=== PATIENT | male | born 1970 | race Caucasian/White ===

== ENCOUNTER 2024-10-10 06:14 | Emergency (ER) | payer MEDICAID, SELFPAY ==
[2024-10-10] VITALS (26 sets, daily range): BP systolic 86–212; BP diastolic 58–150; PULSE 76–106; RESP 15–23; TEMP 35.9–36.4; O2SAT 97–99; BMI 19.0
--- NOTE | 2024-10-10 06:35 | XR_ITS ---
Examination: CT abdomen with intravenous contrast CT pelvis with intravenous contrast 2-D coronal reconstructions 2-D sagittal reconstructions Date and time of exam:October 10, 2024 0858 hrs. Indications: Abdominal pain, marked hypertension today. CTDI: vol (mGy) 5.05 DLP: (mGycm) 271 Technique: Multiple axial sections of the abdomen and pelvis have been obtained. 64 slice high-resolution scanner used. 3 mm axial sections have been obtained, post intravenous injection 30 cc Isovue-300 2-D sagittal, coronal reconstructions obtained. Low dose protocols were performed. One or more of the following dose reduction techniques were used; automated exposure control, adjustment of the mA and/or KV according to patient size, use of iterative reconstruction technique. Findings: Partially ruptured infrarenal abdominal aortic aneurysm AP dimension of the infrarenal abdominal aorta is at least 5.9 cm, extensive thrombus in the aneurysm The cephalocaudad dimension of this aneurysm is at least 15 cm There is hemorrhage outside the wall of the aneurysm which measures up to 20 mm There is possible free blood in the abdomen anterior to the left psoas muscle No focal liver or splenic lesion Atrophic right kidney No bowel obstruction The urinary bladder is intact Impression: Very large partially ruptured infrarenal abdominal aortic aneurysm, maximum transverse dimension of the infrarenal abdominal aorta at least 5.9 cm Hemorrhage is present outside the wall of the aneurysm measuring up to 20 mm FYI: I was notified about this examination at 10:19 AM and immediately called the emergency room physician to give a verbal report, given the delayed notification that I received
--- NOTE | 2024-10-10 06:36 | PD.EDRME ---
Rapid Medical Screening Exam RME Arrival date/time: 10/10/24 06:14 This is a 54y y make here with complaints of left lower abdominal pain. I have greeted and performed a focused initial assessment of this patient. Initial appropriate labs ordered at this time. A comprehensive ED assessment and evaluation of the patient and analysis of all test and completion of medical decision making process will be conducted by additional ED provider. Chief Complaint: General Adult/Misc Complain Time Seen by Provider: 10/10/24 06:16
--- NOTE | 2024-10-10 06:38 | XR_ITS ---
Examination: PA lateral chest 2 views Technique: Upright PA lateral chest 2 views Indications: Smoking history with abdominal and chest pain Findings: Normal heart size Mild hyperexpansion No pneumonia or pulmonary edema Moderate thoracic spondylosis Impression: COPD No pneumonia or pulmonary edema
--- NOTE | 2024-10-10 06:38 | EKG_ITS ---
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
[2024-10-10 07:33] LABS: Collection Type, Urine Clean Catch; Squamous Epithelial Cell,Urine 0 /hpf (0-5)
[2024-10-10 08:13] LABS: Bilirubin,Urine Negative (Negative); Blood,Urine Negative (Negative); Clarity,Urine Clear (Clear/Hazy); Color,Urine Lt-Yellow (Lt Yel-Yel); Glucose, Urine Negative (Negative); Hyaline Casts,Urine < 1 /hpf (0-1); Ketones,Urine Negative (Negative); Leukocyte Esterase,Urine Negative (Negative); Nitrite,Urine Negative (Negative); PH,Urine 6.5 (5.0-7.0); Protein,Urine 2+ (Neg - Trace); RBC,Urine 3 /hpf (0-3); Specific Gravity,Urine 1.023 (1.001-1.035); Urobilinogen,Urine Negative mg/dL (0.0-1.0); WBC,Urine 4 /hpf (0-5)
[2024-10-10 08:14] LABS: Basophils # (Auto) 0.1 Thou/mm3 (0.0-0.2); Basophils % (Auto) 1 % (0-2.5); Eosinophils # (Auto) 0.1 Thou/mm3 (0.0-0.5); Eosinophils % (Auto) 1 % (0-10); Hematocrit 44.4 % (41.0-53.0); Immature Granulocytes % (Auto) 1 % (0-0); Immature Granulocytes Auto 0.06 Thou/mm3 (0.00-0.00); Lymphocytes # (Auto) 3.3 Thou/mm3 (1.0-4.8); Lymphocytes % (Auto) 29 % (10-50); Mean Corpuscular Hemoglobin 32.4 pg (25.0-35.0); Mean Corpuscular Volume 90 fL (80-100); Monocytes # (Auto) 0.9 Thou/mm3 (0.0-0.8); Monocytes % (Auto) 8 % (0-12); Neutrophils # (Auto) 6.8 Thou/mm3 (1.8-7.7); Neutrophils % (Auto) 60 % (37-80); Nucleated Red Blood Cell % 0 /100 WBC (0); Platelet Count 356 Thou/mm3 (140-440); Red Blood Count 4.94 Miln/mm3 (4.50-5.90); White Blood Count 11.2 Thou/mm3 (3.8-10.6)
[2024-10-10 08:21] LABS: Alanine Aminotransferase 13 U/L (10-49); Albumin, Serum 4.3 gm/dL (3.5-5.0); Albumin/Globulin Ratio 1.2 (1.2-2.2); Alkaline Phosphatase 135 U/L (46-116); Anion Gap 7 (7-16); Aspartate Amino Transferase 14 U/L (0-34); BUN/Creatinine Ratio 15 Ratio (12-20); Bilirubin,Total 0.7 mg/dL (0.3-1.2); Blood Urea Nitrogen 22 mg/dL (9-23); Calcium 10.1 mg/dL (8.3-10.6); Calcium (Corrected) 10.1 mg/dL (8.5-10.1); Carbon Dioxide 32.1 mMol/L (20.0-31.0); Chloride 95 mMol/L (98-107); Creatinine (Component) 1.5 mg/dL (0.6-1.3); Estimated Creatinine Clearance 51.2 mL/min (>60); Globulin 3.7 gm/dL (2.3-3.5); Glucose 126 mg/dL (74-106); Lipase 34 U/L (12-53); Osmolality,Calculated 273 (275-295); Potassium 3.1 mMol/L (3.4-5.1); Sodium 134 mMol/L (136-145); Troponin I < 0.020 ng/mL (0.0-0.045); eGFR 55 See Note
[2024-10-10 08:22] LABS: INR 0.9 (0.9-1.3); Prothrombin Time 9.9 Seconds (9.0-12.2)
--- NOTE | 2024-10-10 09:19 | PD.EDABDPN ---
ED Abdominal Pain RME/HPI General Chief Complaint: General Adult/Misc Complain Stated complaint: NO BM X 2 DAYS, BACK PAIN, LEFT GROIN PAIN Time seen by provider: 10/10/24 06:16 Arrival date/time: 10/10/24 06:14 RME / HPI RME / HPI narrative: 10/10/24 06:14 This is a 54y y make here with complaints of left lower abdominal pain. I have greeted and performed a focused initial assessment of this patient. Initial appropriate labs ordered at this time. A comprehensive ED assessment and evaluation of the patient and analysis of all test and completion of medical decision making process will be conducted by additional ED provider. DR. FANNY CERRATO ED EVALUATION: 54 year old male presents to the Emergency Department with complaints of lower abdominal pain and back pain onset 2 weeks. He states the pain is mostly at night. Pain is described as aching and rated moderate in severity. He states he has not seen a doctor in like 5 years. PMHx: Hypertension Social Hx: Current tobaco smoker. Related Data Allergies Allergy/AdvReac Type Severity Reaction Status Date / Time No Known Allergies Allergy Verified 10/10/24 06:21 Review of Systems Review of Systems Systems Reviewed: All systems reviewed, normal except as documented Narrative Review of Systems: GEN: No fever, no chills, no weight loss EYES: No discharge, no visual changes, no pain HEENT: No ear pain, no congestion, no sore throat PULM: No shortness of breath, no cough, no congestion CV: No chest pain, no dyspnea on exertion, no palpitations GI: No nausea, no vomiting, no diarrhea, + lower abdominal pain, no constipation : No frequency, no urgency and no dysuria MUSC/SKEL: No joint pain, + back pain SKIN: No rash PSYCH: No hallucinations, no depression HEME/LYMPH: No easy bleeding or bruising tendencies NEURO: No weakness, no headache Past Medical History Past Medical History CARDIAC: Positive Hypertension Social History SMOKING STATUS: Current every day smoker SUBSTANCE USE: does not use ALCOHOL: Current ED Exam Narrative Physical exam: GENERAL APPEARANCE: AxOx4, generally well-appearing HEENT: NC, AT. MMM. EOMI, muddy sclera, oropharynx clear. NECK: Supple without lymphadenopathy. No stiffness or restricted ROM. HEART: Normal rate and regular rhythm, normal S1/S1, no m/r/g LUNGS: CTAB, moving air well. No crackles or wheezes are heard. ABDOMEN: there is some diffuse abdominal tenderness and a large pulsating mass in the mid abdomen BACK: No midline C/T/L spine pain or deformity, No CVAT, no obvious deformity. EXTREMITIES: Without cyanosis, clubbing or edema. MUSCULOSKELETAL: FROM of all major joints, no chest tenderness NEUROLOGICAL: Grossly nonfocal. Alert and oriented, moving all 4 extremities. CN not formally tested but appear grossly intact. Observed to ambulate with normal gait. Skin: Warm and dry without any rash. Course Course Course Narrative: 1000: Discussed radiology findings with the patient and discussed further tests and treatment. 1007: Discussed with Dr. Potter and he will take a look and send the final report for the CT scan of the abdomen and pelvis. 1034: Dr. Potter called back to discuss CT scan of the abdomen and pelvis and Dr. Potter states there is bleeding around, large aortic aneurysm; CTA is not needed and recommends immediate transfer. Will send official CT scan report soon. 1035: I spoke to the transfer nurse, I have been trying to call them for 10 minutes. 1325: Discussed the case with family and patient again, they are aware pako is being transferred. Quality Measures none Orders Category Date Time Status CT Screening NOW Care 10/10/24 06:35 Completed EKG (ED ONLY) *Do not use* NOW Care 10/10/24 06:38 Completed Insert IV NOW Care 10/10/24 09:53 Completed NPO STAT Care 10/10/24 06:35 Completed Transfuse,blood/blood products NOW Care 10/10/24 12:24 Completed Referral - Manager Environmental Health And Safety Stat Cons 10/10/24 12:26 Active Transfer to another facility [Transfer/Discharge] Stat Discharge 10/10/24 10:[address] abdomen pelvis w con Stat Exams 10/10/24 06:35 Completed EKG (ED Only) Stat Exams 10/10/24 06:38 Draft XR chest 2V Stat Exams 10/10/24 06:38 Completed CBC Stat Lab 10/10/24 07:33 Completed Comprehensive Metabolic Panel Stat Lab 10/10/24 07:33 Completed Hemoglobin and Hematocrit Stat Lab 10/10/24 10:53 Completed Hemoglobin and Hematocrit Stat Lab 10/10/24 12:59 Completed Lipase Stat Lab 10/10/24 07:33 Completed Prothrombin Time with INR Stat Lab 10/10/24 07:33 Completed Troponin I Stat Lab 10/10/24 07:33 Completed Type and Screen Stat Lab 10/10/24 10:00 Results Urinalysis Stat Lab 10/10/24 07:07 Completed prbc [Red Blood Cells] Stat Lab 10/10/24 10:00 Results ESMOLOL in NS 2000 MG IVPB Med 10/10/24 09:51 Discontinued 2,000 mg in 100 ml IV 500 mcg/kg/min Nicotine Patch [Nicoderm Patch] Med 10/10/24 10:20 Discontinued 21 mg TOP X1 ONE hydrALAZINE INJ [Apresoline Inj] Med 10/10/24 11:25 Discontinued 20 mg IV X1 ONE Reevaluation(s) Reevaluation #1: Patient is now complaining of abdominal pain. Time: 12:30 Vital Signs Vital signs: Vital Signs Temperature 97.5 F 10/10/24 06:36 Pulse Rate 106 H 10/10/24 06:36 Respiratory Rate 18 10/10/24 06:36 Blood Pressure 212/150 H 10/10/24 06:36 Pulse Oximetry (%) 98 10/10/24 06:36 Oxygen Delivery Method Room Air 10/10/24 06:36 Procedures -ED EKG Interpretation #1: Date of EK10/10/24 Time of EK:49 Rate: 103 Interpretation: Interpreted by me Additional EKG comment: sinus tachycardia, rate 103, normal intervals, normal axis, no acute ST-T wave changes. Abdominal Pain MDM MDM Narrative MDM Narrative:: Mr. Castro is a very sick man who presents to the emergency department with a ruptured, bleeding, abdominal aneurysm. It is large in diameter with extension almost to full length of the infrarenal area and possibly including the renal arteries. He presents with malignant hypertension with diastolic blood pressures as high as 149. Surprisingly he is in minimal distress on encounter, and exam notes a pulsatile mass that is mildly tender. I reviewed the CT images myself and noted a large aortic aneurysm and surrounding possible rupture. Patient was transferred to room 10 to the resuscitation room, where second large-bore IV was done, the patient was typed and screened, and started immediately on an esmolol drip. I contacted radiology for stat read on the CT in order to initiate the transfer process. This does not appear to be as tender as I would expect given the ruptured AAA's I have examined before. He also does not have significant abdominal distention suggestive of rapid bleeding. Given his malignant hypertension, he was started aggressively on esmolol to decrease blood pressure and the impulse to his aneurysm. He quickly maxed on esmolol with improvement of his systolic blood pressure to the 160s 170s and requiring additional dose of hydralazine (nitroprusside was avoided due to his worsening renal function). Initial hemoglobin is actually of the high end of normal at 16 with second 3-hour hemoglobin dropped to 14.6 (total volume received at that time was approximately 300 cc through the esmolol drip). Patient was typed and screened and consented for possibility of rapid transfusion. Case was discussed at multiple facilities with vascular specialty including [facility], [facility], [facility], [facility], and eventually [facility]. Vascular surgery Dr. Mead, at [facility] feels that this is a very critical and complex aneurysm that eventually would likely need high interventional specialty found at [facility]. However given the time urgency of it, patient will be flown to [facility] for stabilization. Several exchanges with Dr. Mead was much appreciated as he was very supportive, communicative and clear on goal-directed treatment to stabilize for transport. This included permissive hypertension to systolic blood pressure of approximately 100-120 or and possibly lower as long as he has a alert mental status. He recommends avoiding blood transfusion as he it might convert a clotted off and perirupturing to an active hemorrhage and rupture. Patient was transported with an additional 3 units of packed red blood cells along with the single unit that is with [facility] air transport. I discussed the case at length with the patient, his , and his 2 sons particularly his poor prognosis. Throughout the time he was calm, courteous, and very respectful. he expressed understanding, appreciation, and accord with the current management and treatment plan. I, Delmi Mitchell, am scribing for and in the presence of Dr. Acosta. Patient data External records reviewed:: None (no previous visits) Clinical information provided by:: patient Social determinants that could affect healthcare access:: other (specify) (Current tobaco smoker. ) Patient has the following chronic illnesses:: Hypertension How is presenting disease/condition affected by chronic disease/condition?: exacerbated by Evaluation data The following diagnostics were reviewed and interpreted by or:: lab results and radiology exam(s) Lab and/or radiology exams considered but not ordered:: CTA but immediate transfer is a priority Interpretation Summary: Procedure(s): XR chest 2V Accession Number(s): [id number] cc: Jr Potter MD; [facility] Examination: PA lateral chest 2 views Technique: Upright PA lateral chest 2 views Indications: Smoking history with abdominal and chest pain Findings: Normal heart size Mild hyperexpansion No pneumonia or pulmonary edema Moderate thoracic spondylosis Impression: COPD No pneumonia or pulmonary edema Dictated By: Jr Potter MD Procedure(s): CT abdomen pelvis w con Accession Number(s): [id number] cc: Jr Potter MD; NO PRIMARY/FAMILY,PHYSICIAN; [facility] Examination: CT abdomen with intravenous contrast CT pelvis with intravenous contrast 2-D coronal reconstructions 2-D sagittal reconstructions Date and time of exam:October 10, 2024 0858 hrs. Indications: Abdominal pain, marked hypertension today. CTDI: vol (mGy) 5.05 DLP: (mGycm) 271 Technique: Multiple axial sections of the abdomen and pelvis have been obtained. 64 slice high-resolution scanner used. 3 mm axial sections have been obtained, post intravenous injection 30 cc Isovue-300 2-D sagittal, coronal reconstructions obtained. Low dose protocols were performed. One or more of the following dose reduction techniques were used; automated exposure control, adjustment of the mA and/or KV according to patient size, use of iterative reconstruction technique. Findings: Partially ruptured infrarenal abdominal aortic aneurysm AP dimension of the infrarenal abdominal aorta is at least 5.9 cm, extensive thrombus in the aneurysm The cephalocaudad dimension of this aneurysm is at least 15 cm There is hemorrhage outside the wall of the aneurysm which measures up to 20 mm There is possible free blood in the abdomen anterior to the left psoas muscle No focal liver or splenic lesion Atrophic right kidney No bowel obstruction The urinary bladder is intact Impression: Very large partially ruptured infrarenal abdominal aortic aneurysm, maximum transverse dimension of the infrarenal abdominal aorta at least 5.9 cm Hemorrhage is present outside the wall of the aneurysm measuring up to 20 mm FYI: I was notified about this examination at 10:19 AM and immediately called the emergency room physician to give a verbal report, given the delayed notification that I received Dictated By: Jr Potter MD Medications / Prescriptions Medications or Prescriptions considered but not ordered:: none Medication administrations:: Medication Administration History Discontinued Medications Hydralazine HCl (Hydralazine Inj 20 Mg/Ml Vial) 20 mg IV X1 ONE Stop: 10/10/24 11:26 Last Admin: 10/10/24 11:38 Dose: 20 mg Documented By: Esmolol HCl (Esmolol In Ns 2000 Mg Ivpb) 2,000 mg in 100 mls @ 95.255 mls/hr IV .Q1H3M PRN; Protocol PRN Reason: PER PROTOCOL Stop: 11/09/24 09:50 Last Titration: 10/10/24 13:01 Dose: 0 mcg/kg/min, 0 mls/hr Documented By: Titration: 10/10/24 12:57 Dose: 100 mcg/kg/min, 19.051 mls/hr Documented By: Titration: 10/10/24 12:52 Dose: 200 mcg/kg/min, 38.102 mls/hr Documented By: Admin: 10/10/24 12:16 Dose: 300 mcg/kg/min, 57.153 mls/hr Documented By: Titration: 10/10/24 12:16 Dose: Infused Documented By: Titration: 10/10/24 11:10 Dose: 300 mcg/kg/min, 57.153 mls/hr Documented By: Titration: 10/10/24 11:01 Dose: 200 mcg/kg/min, 38.102 mls/hr Documented By: Titration: 10/10/24 10:47 Dose: 150 mcg/kg/min, 28.576 mls/hr Documented By: Admin: 10/10/24 10:34 Dose: 100 mcg/kg/min, 19.051 mls/hr Documented By: Titration: 10/10/24 10:34 Dose: Infused Documented By: Titration: 10/10/24 10:32 Dose: 100 mcg/kg/min, 19.051 mls/hr Documented By: Titration: 10/10/24 10:14 Dose: 50 mcg/kg/min, 9.525 mls/hr Documented By: Admin: 10/10/24 10:13 Dose: 500 mcg/kg/min, 95.255 mls/hr Documented By: Nicotine (Nicotine Patch 21 Mg/24 Hr Patch.Td24) 21 mg TOP X1 ONE Stop: 10/10/24 10:21 Last Admin: 10/10/24 11:12 Dose: 21 mg Documented By: see above Consultations Consultation(s) initiated? (list below): Yes Consultation #1 (Physician, Specialty, Details): Discussed test HPI, PMHx, lab, radiology results and/or management with Dr. Ruano from [facility]. Denied patient, out of their scope. Time: 11:20 Consultation #2 (Physician, Specialty, Details): Discussed the case with transfer nurse from [facility], awaiting call back for transfer acceptance. Time: 12:25 Consultation #3 (Physician, Specialty, Details): 1305: Discussed test HPI, PMHx, lab, radiology results and/or management with Dr. Mead from Vascular surgeon at [facility]. Accepts patient for transfer, requesting a flight crew. Dr. Mead also recommending to avoid transfusion because this is a shannon rupture and it can fully rupture. 100 to 120 systolic is the goal. 1320: Discussed test HPI, PMHx, lab, radiology results and/or management with Emergency Department Dr. Barnhart from [facility]. Accepts transfer ER to ER. Diagnosis Differential diagnosis abdominal pain: abdominal pain, diverticulitis, small bowel obstruction and other (AAA) Most likely diagnosis given after review of the tests above:: Ruptured Abdominal aortic aneurysm Hypertensive emergency Admission Indicated Admission indicated?: not indicated Explain why admission is indicated or not indicated:: Patient needs higher level of care and will be transferred. Admission Request Was there a request for admission?: No Disposition Plan Disposition Plan: Transfer Critical Care Time Critical Care Time Critical Care Time: Yes Total Critical Care Time (min.): 90 Attestation: The high probability of sudden, clinically significant deterioration in the patient?s condition required the highest level of my preparedness to intervene urgently. The services I provided to this patient were to treat and/or prevent clinically significant deterioration. Services included the following: chart data review, reviewing nursing notes and/or old charts, documentation time, databases computer consultant collaboration regarding findings and treatment options, medication orders and management, direct patient care, vital sign assessments and ordering, interpreting and reviewing diagnostic studies and lab tests. Aggregate critical care time includes only time during which I was engaged in work directly related to the patient?s care, as described above, whether at bedside or elsewhere in the Emergency Department. It did not include time spent performing other reported procedures or the services of residents, students, nurses or physician assistants. Discharge Plan Plan Patient Disposition: Xfer Acute Care Fac Prescriptions/Referrals Referrals: No Primary/Family,Physician [Primary Care Provider] - In 1 week Problem List Clinical Impression: Abdominal aneurysm, ruptured, Hypertensive emergency Patient/Caregiver Discharge Instructions Print Language: Georgian Stand Alone Forms: Shwetha Award Info., Patient Portal Info Letter
[2024-10-10] MEDS: [UNRECOGNIZED DRUG - OTHER] 95.255 MG IV (10:13)
[2024-10-10] MEDS: [UNRECOGNIZED DRUG - OTHER] 19.051 MG IV (10:34)
--- NOTE | 2024-10-10 10:46 | PC.CC ---
Addendum entered by Laura Ricketts RN 10/10/24 13:54: 1352 sent paperwork to [facility] through [employer]. Called [facility], spoke to Goyo and she confirmed that she received the paperwork. Addendum entered by Laura Ricketts RN 10/10/24 13:48: 1346 called [facility] and update about accepting information. 1330 Updated transfer packet, Packet printed for [facility]. Given to charge nurse. Addendum entered by Laura Ricketts RN 10/10/24 13:26: 1243 called [facility], spoke to Lidia and initiated the transfer. She connected her [facility] vascular surgeon Dr. Ra Mead on the line. Dr. Mead wants peer to peer with Dr. Acosta. Conference call connected. Dr. Ra Mead accepted the pt. After that Lidia connected [facility] ED provider Dr. Jose Barnhart on the line for peer to peer with Dr. Acosta. Total call time 39min including the holding time. At 1322 Pt is accepted for ED to ED at [facility]. Address [address], [place] [address]. Call report at [phone]. Addendum entered by Laura Ricketts RN 10/10/24 12:42: 1231 called [facility], total hold time 6 min before I initiated the transfer. Spoke to Marti. Total call time 11min. Addendum entered by Laura Ricketts RN 10/10/24 12:33: 1231 clinicals sent to [facility] per Dr. Acosta. Addendum entered by Laura Ricketts RN 10/10/24 12:33: 1230 clinicals sent to [facility]. Addendum entered by Laura Ricketts RN 10/10/24 12:25: 1221 Images pushed to [facility] via [employer]. Addendum entered by Laura Ricketts RN 10/10/24 12:21: 1220 Received call from Ellyn at [facility]. She stated Dr. Khan is not calling her back and they don't have a any bed at [facility]. Therefore she has to decline and close the case. Addendum entered by Laura Ricketts RN 10/10/24 12:19: 1209 called [facility], spoke to Lilia and initiated the transfer. Lilia wants to speak with Dr. Acosta. Call transferred. Addendum entered by Laura Ricketts RN 10/10/24 12:18: 1207 Received call from Ellyn at [facility]. She stated they don't have a any bed at [facility] but she is waiting for Dr. Khan to call back if he can handle it in ED. She stated continue to reach out to other facilities. Addendum entered by Laura Ricketts RN 10/10/24 12:02: 1155 received call from Jane at [facility] that the team will be there in 15 min. Addendum entered by Laura Ricketts RN 10/10/24 12:01: 1148 Called [facility], spoke to Jef to setup the transport. He stated he will call me back after flight check. Addendum entered by Laura Ricketts RN 10/10/24 12:00: [address] Acosta and calling [facility] for transport. 1136 clinicals sent to [facility] and [facility]. Addendum entered by Laura Ricketts RN 10/10/24 11:58: 1133 Called [facility], spoke to Telly and initiated the transfer. He transferred my call to nurse. I spoke to Ellyn and gave clinicals. Addendum entered by Laura Ricketts RN 10/10/24 11:56: 1132 Pt was about to leave to [facility], I informed Dr. Acosta, charge nurse and the dispatch team. Per [facility], Dr. Shrestha reviewed it again and stated he will not be able to manage the pt. Transfer request is canceled. 1131 received call from Feli at [facility] that Dr. Shrestha reviewed it again and stated he will not be able to manage the pt. Transfer request is canceled. Addendum entered by Laura Ricketts RN 10/10/24 11:44: 1128 transfer packet is complete with CD inside including all signatures. transfer packet and number to call for report given to charge nurse. Addendum entered by Laura Ricketts RN 10/10/24 11:43: 1120 received call from Feli at [facility] that pt is accepted for ED to ED transfer. Accepting Georgina Wiley. Call report at [phone]. Addendum entered by Lauar Ricketts RN 10/10/24 11:18: 11:16 received call from Feli at [facility] that she wants to speak with Dr. Acosta. Call transferred. Addendum entered by Laura Ricektts RN 10/10/24 11:15: late note Received [address] Acosta at 10:35, 10:36 and 10:38. I was unable to cotton picker operator the phone since I was working on ICU transfer and I was economic consultant with [facility]. called him back at 1038 and I was informed need transfer for the pt. Addendum entered by Laura Ricketts RN 10/10/24 11:07: 1102 CT report is now available. Faxed it to [facility]. 1102 called [facility], spoke to Feli for update. She stated she already got the clinicals but waiting for her house supp to check if they have critical care bed for the pt. 1058 called [facility], spoke to Rosemary for stat transport. She stated the team is already at bedside. Addendum entered by Laura Ricketts RN 10/10/24 10:53: 1052 Called [facility], spoke to tech and informed need CD for stat transfer. Original Note: [address] Acosta, he stated once pt is accepted, stat ground transport is OK. 1044 Called [facility], spoke to Feli and initiated the transfer. She stated she iona back after reviewing the packet and she will connect us to Dr. Ruano. 1040 clinicals sent to [facility]. [address] Acosat that pt needs to be transferred to [facility] for Large aortic aneurysm with hemorrhage need vascular surgery services.
[2024-10-10] MEDS: NICOTINE PATCH 21 MG/24 HR PATCH.TD24 TOP (11:12)
[2024-10-10 11:23] LABS: Hemoglobin 14.6 g/dL (13.5-16.0)
[2024-10-10] MEDS: hydrALAZINE INJ 20 MG/ML VIAL IV (11:38)
[2024-10-10] MEDS: [UNRECOGNIZED DRUG - OTHER] 57.153 MG IV (12:16)
[2024-10-10 13:02] LABS: Hemoglobin 14.3 g/dL (13.5-16.0)
--- NOTE | 2024-10-10 19:25 | PC.NURSE ---
3 units prbcs sent with flight RN at time of patients discharge at 1350
== END 2024-10-10 13:55 | disposition short-term general hospital (02) ==
PROVIDERS: Nurse Practitioner Primary Care; Emergency Provider Emergency Medicine
DX: I71.33 Infrarenal abdominal aortic aneurysm, ruptured (principal); I16.1 Hypertensive emergency; I10 Essential (primary) hypertension; F17.210 Nicotine dependence, cigarettes, uncomplicated
CPT/HCPCS: 36415; 71046; 74177; 80053; 81001; 83690; 84484; 85014; 85018; 85025; 85610; 86850; 86900; 86901; 86923; 93005; 96365; 99291; 99292; A4649; J0360; J3490; P9016; Q9967; A9270; J1805